=== PATIENT | female | born 1990 | race Hispanic/Latino ===

== ENCOUNTER 2017-05-28 12:39 | Inpatient (IN) | payer BC ==
[~2017-05-28 12:39] MED LIST: PEPCID20 MG PO; PRENATAL VITAM1 EAC3 PO
--- NOTE | 2017-05-29 01:57 | PR ---
[facility] [address] [facility] [place], [place] [address] Signed Progress Notes IP Datetime Report Generated by CPN: 05/29/2017 01:57 PROGRESS NOTES: [id number] Impression: Slow Progression of Labor Procedures: Intrauterine Pressure Catheter; Sterile Vag Exam Plan: Continue present management Other Plans: augmentation stopped Informed Consent Obtain: Vaginal Delivery; Risks, Benefits and Alternatives Discussed VITAL SIGNS: [id number] Vital Signs: Reviewed EXAM: [id number] Dilatation: 10.0 Effacement: 100 Station: 1 Uterine Contractions: every two minutes MEMBRANES: [id number] Membrane Status: Ruptured Amniotic Fluid Color: Clear Comments: patient feeling pressure and wanting to push Fetus A: [id number] FHR Baseline: 150's Variability: Moderate 6-25bpm Accelerations: 15X15 Decelerations: None FHR Category: Category I Presentation: Vertex Comments on Fetus A: reactive Fetus B: [id number] Signing Physician: Shelley Galo MD CC: *Electronically Signed* 05/29/17 0157 SHELLEY GALO MD PATIENT NAME: JACEY JULINEBEN NESS PROGRESS NOTE DATE OF : 89 PHYSICIAN: SHELLEY GALO MD RPT #: [id number] REPORT IS CONFIDENTIAL AND NOT TO BE RELEASED WITHOUT AUTHORIZATION
== END 2017-05-30 13:10 | disposition home or self-care (01) | DRG 774 ==
LOC: FBC 12:39
PROVIDERS: ADMIT Obstetrics & Gynecology
PROC: 00HU33Z Insertion of Infusion Device into Spinal Canal, Percutaneous Approach (ICD-10-PCS; 2017-05-28)
PROC: 3E0R3BZ Introduction of Anesthetic Agent into Spinal Canal, Percutaneous Approach (ICD-10-PCS; 2017-05-28)
PROC: 10907ZC Drainage of Amniotic Fluid, Therapeutic from Products of Conception, Via Natural or Artificial Opening (ICD-10-PCS; 2017-05-28)
PROC: 10E0XZZ Delivery of Products of Conception, External Approach (ICD-10-PCS; principal; 2017-05-29)
DX: O15.1 Eclampsia complicating labor (principal); Z3A.37 37 weeks gestation of pregnancy; Z37.0 Single live birth; O13.4 Gestational [pregnancy-induced] hypertension without significant proteinuria, complicating childbirth
CPT/HCPCS: 01960; 36415; 82565; 84450; 84520; 84550; 85025; 85027; J2590; J7120

== ENCOUNTER 2017-09-09 20:19 | Observation (INO) | payer BC ==
[~2017-09-09] VITALS: Ht 162.6 cm; Wt 88.7 kg
--- NOTE | 2017-09-10 18:17 | CONS ---
[facility] [address] [place], [place] [address] Signed DATE OF CONSULTATION: 09/10/2017 REFERRING PHYSICIAN: Dr. Silva Hidalgo CHIEF COMPLAINT: Right upper quadrant abdominal pain. HISTORY OF PRESENT ILLNESS: Rachel is a 27-year-old female, who now has her 2 children. Her youngest is 3-month-old. She is not that child. The last 6 days, she has had right upper quadrant abdominal pain radiating through to her back. It has made it difficult to eat. She finally came in the emergency room for evaluation. In the emergency room, she was tender in the right upper quadrant epigastric area and her white count was up at 11.2. Liver function tests were fine and the beta HCG is negative. She had a CT scan of the abdomen and pelvis performed and she has a thickened gallbladder wall with stones and some pericholecystic fluid. Common bile duct appears unremarkable. Consequently, I was asked to admit her as a general surgeon on-call. She received Cipro and Flagyl in the ER and IV fluids and pain control overnight. She is doing better, but she said the pain medications wearing off and she has noticed the pain is coming back. PAST MEDICAL HISTORY: Obesity. PAST SURGICAL HISTORY: None. SOCIAL HISTORY: She does not smoke or drink. She is and has 2 children. She drives and they live in [place]. They prefer the [facility] in [place], [place]. 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 Her primary care provider is Manuela Parnell. 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 FAMILY HISTORY: Mom and dad are both healthy. REVIEW OF SYSTEMS: She had 10 systems reviewed and she is quite healthy other than being overweight. ALLERGIES: Penicillin causes a rash. MEDICATIONS: Electronically Signed By: AWILDA BANG MD 09/10/17 4389 PATIENT NAME: RACHEL JULIEN CONSULTATION DATE OF : 89 REPORT #: [id number] PHYSICIAN: AWILDA BANG MD PCP: MANUELA PARNELL REPORT IS CONFIDENTIAL AND NOT TO BE RELEASED WITHOUT AUTHORIZATION [facility] [address] [place], [place] [address] Signed None. PHYSICAL EXAMINATION: VITAL SIGNS: Her blood pressure is 114/78, her heart rate 70, respiratory rate 18, temperature is 97.9. She is 100% on room air. She is 5 feet 4 inches, 88 kg. GENERAL: Rachel is a 27-year-old female, lying supine in her hospital bed. Her is in the room. She is alert, awake, and interactive. She does not appear systemically ill or toxic. She is not jaundiced. LUNGS: Clear to auscultation. HEART: Regular rate and rhythm. ABDOMEN: Obese. But soft. She is tender to deep palpation in the right upper quadrant. LABORATORY DATA: Her white blood cell count is 11.1, hemoglobin is 12, neutrophils 75. BUN 12, creatinine 0.5, total bilirubin 0.3, AST 15, ALT 33, alkaline phosphatase 59, albumin is 4.1, lipase is 19. Beta HCG negative. Urinalysis negative. RADIOGRAPHIC STUDIES: The CT scan of abdomen and pelvis is reviewed both the images and the report. She clearly has a thickened gallbladder wall with some stones and some pericholecystic fluid. Common bile duct is unremarkable. ASSESSMENT AND PLAN: Rachel is a 27-year-old female, who presents with acute cholecystitis and cholelithiasis. She has been admitted, given IV fluids, antibiotics and pain control. The plan is to take her to the operating room later this day, once we have a room available. We have discussed the location of function of the gallbladder. We have discussed laparoscopic versus open cholecystectomy. She understands there is risk including, but not limited to, bleeding, infection, scarring, change in contour of the skin, damage to bowel, damage to main bile duct, incisional hernias, and other unforeseen comorbidities. She has expressed understanding and wishes to proceed. Awilda Bang MD ALB/MODL /[id number] cc: Awilda Bang MD Electronically Signed By: AWILDA BANG MD 09/10/17 1817 PATIENT NAME: RACHEL JULIEN CONSULTATION DATE OF : 89 REPORT #: [id number] PHYSICIAN: AWILDA BANG MD PCP: MANUELA PARNELL REPORT IS CONFIDENTIAL AND NOT TO BE RELEASED WITHOUT AUTHORIZATION [address] [address] Signed FITO Go Copies: AIWLDA BANG MD, EILEEN FNP ~ Electronically Signed By: AWILDA BANG MD 09/10/17 1817 PATIENT NAME: RACHEL JULIEN CONSULTATION DATE OF : 89 REPORT #: [id number] PHYSICIAN: AWILDA BANG MD PCP: MANUELA PARNELL REPORT IS CONFIDENTIAL AND NOT TO BE RELEASED WITHOUT AUTHORIZATION
--- NOTE | 2017-09-11 08:12 | OR ---
[facility] [address] [place], [place] [address] Signed DATE OF OPERATION: 09/10/2017 SURGEON: Awilda Bang MD PREOPERATIVE DIAGNOSIS: Acute cholecystitis/cholelithiasis. POSTOPERATIVE DIAGNOSIS: Acute cholecystitis/cholelithiasis. PROCEDURE: Laparoscopic cholecystectomy with intraoperative cholangiogram. ESTIMATED BLOOD LOSS: None. FINDINGS: The gallbladder was quite tense and edematous. The gallbladder wall was thickened. The gallbladder was nearly completely full of pus. There was a 1.5 cm stone in the neck of the gallbladder. The intraoperative cholangiogram was unremarkable. INDICATIONS: Margie is a 27-year-old female, who for the last 6 days has had right upper quadrant abdominal pain radiating through to her back. She finally came to the emergency room for evaluation. She was tender in the right upper quadrant with an elevated white blood cell count. Liver function tests were essentially fine. Beta HCG was negative. She had a CT scan of the abdomen and pelvis performed. She had a thickened gallbladder wall with pericholecystic fluid and at least one stone evident. Common bile duct was unremarkable. I was asked to admit her as a general surgeon on-call. She received IV fluids, pain control, and antibiotics overnight. I met with Margie and her this morning. We discussed the location and function of the gallbladder. We discussed laparoscopic versus open cholecystectomy. They understand there is risk including, but not limited to, bleeding, infection, scarring, change in contour of the skin, damage to bowel, damage to main bile duct, incisional hernias, and other unforeseen comorbidities. They had expressed understanding and wished to proceed. PROCEDURE NOTE: Margie was taken into our operating room and placed in the supine position under general endotracheal tube anesthesia. She was already on preoperative antibiotics along with subcutaneous heparin. SCDs were utilized. She was then prepped and draped in the Electronically Signed By: AWILDA BANG MD 09/11/17 0812 PATIENT NAME: MARGIE JULIEN OPERATIVE REPORT DATE OF : 89 REPORT #: [id number] PHYSICIAN: AWILDA BANG MD PCP: MANUELA PARNELL REPORT IS CONFIDENTIAL AND NOT TO BE RELEASED WITHOUT AUTHORIZATION [facility] [address] [place], [place] [address] Signed usual sterile fashion. All trocars were placed in usual positions under direct visualization of the camera without difficulty. The gallbladder was elevated in the right upper quadrant. Pictures were taken throughout for photodocumentation. The gallbladder was so tense, we could not grasp the gallbladder. We made a small hole in the front of the gallbladder. We suctioned out initially clear fluid and then followed by copious amounts of pus. After this, the triangle of Calot was very carefully dissected free and with the cautery. A clip had been placed on the cystic artery and it was divided. Intraoperative cholangiocatheter was then inserted into the cystic duct. The intraoperative cholangiogram was then performed. The cystic duct stump was then secured with PDS Endoloop and 2 clips were placed on the end of the cystic duct stump to lewis its location. The gallbladder was then removed from the gallbladder fossa with the help of the cautery. There was significant amount of edema as we came through the tissue plane. The gallbladder was then placed into an EndoCatch bag. The right upper quadrant was then irrigated and suctioned out until clear. We used our laparoscopic suturing device to pass 0 Vicryl suture on either side of the fascia of the subxiphoid trocar site. This was tied down to close this fascia primarily. After this, the trocars were removed along with the gallbladder. The gallbladder had been opened on the back table by our circulating nurse. It was quite thickened and edematous with a stone in the neck of the gallbladder. We then closed the fascia of the supraumbilical trocar site with interrupted [id number] and simple 0 Vicryl sutures. Local anesthetic was injected into all trocar sites. Each trocar site was closed with interrupted 3-0 subcuticular Monocryl sutures. Dry gauze and tape were then applied to all incisions. Margie was then awakened from her anesthesia, extubated in the OR, and taken to recovery room in stable condition. Awilda Bang MD ALB/MODL /[id number] cc: MD Manuela Douglas FNP Copies: AWILDA BANG MD Electronically Signed By: AWILDA BANG MD 09/11/17 0812 PATIENT NAME: MARGIE JULIEN OPERATIVE REPORT DATE OF : 89 REPORT #: [id number] PHYSICIAN: AWILDA BANG MD PCP: MANUELA PARNELL REPORT IS CONFIDENTIAL AND NOT TO BE RELEASED WITHOUT AUTHORIZATION [facility] [address] [facility], [place] [address] Signed MANUELA PARNELL ~ Electronically Signed By: AWILDA BANG MD 09/11/17811 PATIENT NAME: JACEY JULIENBEN NESS OPERATIVE REPORT DATE OF : 89 REPORT #: [id number] PHYSICIAN: AWILDA BANG MD PCP: MANUELA PARNELL REPORT IS CONFIDENTIAL AND NOT TO BE RELEASED WITHOUT AUTHORIZATION
[2017-09-11] MEDS ORDERED: NORCO 5-325 TA1 EACH PO (08:27)
[2017-09-11] MEDS ORDERED: PROMETHAZINE HC25 M1 PO (08:28)
== END 2017-09-11 10:07 | disposition home or self-care (01) ==
LOC: ED 20:19 → MS 20:20
PROVIDERS: ADMIT Colon & Rectal Surgery
PROC: BF101ZZ Fluoroscopy of Bile Ducts using Low Osmolar Contrast (ICD-10-PCS; 2017-09-10)
PROC: 0FT44ZZ Resection of Gallbladder, Percutaneous Endoscopic Approach (ICD-10-PCS; principal; 2017-09-10 17:00)
DX: K80.00 Calculus of gallbladder with acute cholecystitis without obstruction (principal); E66.9 Obesity, unspecified; Z68.33 Body mass index [BMI] 33.0-33.9, adult; Z88.0 Allergy status to penicillin
CPT/HCPCS: 00790; 74177; 74300; 80053; 81001; 83690; 84703; 85025; 96361; 96365; 96366; 96367; 96374; 96375; 96376; 99285; G0378; J0330; J0696; J0744; J1100; J1170; J1885; J2250; J2405; J2704; J2710; J2765; J3010; J3480; J7050; J7120; Q9967

== ENCOUNTER 2020-08-13 08:54 | Emergency (ER) | payer BC ==
[~2020-08-13] VITALS: Ht 162.6 cm; Wt 88.7 kg
[~2020-08-13 08:54] MED LIST changes: +NORCO 5-325 TA1 EACH PO; +PROMETHAZINE HC25 M1 PO
--- NOTE | 2020-08-13 10:38 | EKG ---
[facility] [address] [facility] [place], [place] [address] Signed Normal sinus rhythm Prolonged QT Abnormal ECG No previous ECGs available Confirmed by JASPER CALERO MD ([id number]) on 08/13/2020 10:38:36 AM Electronically Signed By: JSAPER CALERO MD 08/13/20 1038 PATIENT NAME: RACHEL JULIEN Electrocardiogram DATE OF : 89 PHYSICIAN: JASPER CALERO MD REPORT #: [id number] REPORT IS CONFIDENTIAL AND NOT TO BE RELEASED WITHOUT AUTHORIZATION
== END 2020-08-13 12:03 | disposition home or self-care (01) ==
LOC: ED 08:54
DX: R07.89 Other chest pain (principal)
CPT/HCPCS: 71045; 80053; 83735; 84484; 85025; 85651; 86140; 93005; 93010; 99285-25

== ENCOUNTER 2021-12-22 23:16 | Inpatient (IN) | payer BC ==
[~2021-12-22] VITALS: Ht 162.6 cm; Wt 95.7 kg
== END 2021-12-25 12:35 | disposition home or self-care (01) | DRG 807 ==
LOC: FBCO 23:16 → FBC 23:31
PROVIDERS: ADMIT General Practice; ATTEND General Practice
PROC: 10E0XZZ Delivery of Products of Conception, External Approach (ICD-10-PCS; principal; 2021-12-23)
PROC: 0HQ9XZZ Repair Perineum Skin, External Approach (ICD-10-PCS; 2021-12-23)
PROC: 10907ZC Drainage of Amniotic Fluid, Therapeutic from Products of Conception, Via Natural or Artificial Opening (ICD-10-PCS; 2021-12-23)
PROC: 3E0R3BZ Introduction of Anesthetic Agent into Spinal Canal, Percutaneous Approach (ICD-10-PCS; 2021-12-23)
PROC: 00HU33Z Insertion of Infusion Device into Spinal Canal, Percutaneous Approach (ICD-10-PCS; 2021-12-23)
DX: O70.0 First degree perineal laceration during delivery (principal); Z37.0 Single live birth; Z3A.39 39 weeks gestation of pregnancy; Z88.0 Allergy status to penicillin; Z90.49 Acquired absence of other specified parts of digestive tract; Z79.82 Long term (current) use of aspirin; Z79.899 Other long term (current) drug therapy; Z20.822 Contact with and (suspected) exposure to COVID-19
CPT/HCPCS: 36415; 85027; 86850; 86900; 86901; 87502; A9270; C9803; J2001; J2590; J2795; J3010; J7121; U0003

== ENCOUNTER 2024-05-27 10:23 | Emergency (ER) | payer BC, OTHER ==
[~2024-05-27] VITALS: Ht 152.4 cm; Wt 94.7 kg
[2024-05-27] MEDS ORDERED: AZITHROMYCIN500 MG PO (11:59)
[2024-05-27 12:16] VITALS: BP 136/99
== END 2024-05-27 12:17 | disposition home or self-care (01) ==
LOC: ED 10:23
DX: J02.0 Streptococcal pharyngitis (principal); Z88.0 Allergy status to penicillin
CPT/HCPCS: 87651; 99283